=== PATIENT | female | born 1995 | race Hispanic/Latino ===

== ENCOUNTER 2017-05-22 20:18 | Emergency (ER) | payer MEDICAID, OTHER | END 2017-05-22 20:59 | disposition home or self-care (01) | LOC: EDH 20:18 | DX: L30.9 Dermatitis, unspecified (principal); F15.90 Other stimulant use, unspecified, uncomplicated; Z72.0 Tobacco use | CPT/HCPCS: 99281 ==

== ENCOUNTER 2019-05-18 22:53 | Emergency (ER) | payer OTHER ==
[2019-05-18] MEDS ORDERED: DEXAMETHASONE SOD PHOSPHATE 10MG/ML 1ML VIAL ONE (23:57)
[2019-05-18] MEDS ORDERED: KETOROLAC TROMETHAMINE 60 MG/2 ML VIAL ONE (23:57)
== END 2019-05-19 00:44 | disposition home or self-care (01) ==
LOC: EDH 22:53
DX: K64.8 Other hemorrhoids (principal)
CPT/HCPCS: 81025; 96372 ×2; 99284; J1100; J1885